=== PATIENT | male | born 1960 | race Caucasian/White ===

== ENCOUNTER → 2016-06-05 | Outpatient (CLI) | payer OTHER ==
[~2016-06-05] VITALS: Ht 180.3 cm; Wt 83.9 kg
[~2016-06-05] MED LIST: ACET-461 PO; BENZ2AMP2 IJ; BUPR100T6 PO; BUTA1TAB46 PO; CATHETER FLUSH 10 ML SYR IV PRN; CHOL500049 PO; D50KC PO; DIAZ-345 PO; ESCI20TA2; ESCT10T; HYDR-707 PO; HYDR1TAB PO; IBP800T PO; LEVO50TA6 PO; LITH300C PO; LITH600C PO; MECL-124 PO; MECL25TA56 PO; MIRT45TA PO; MRTZ30T1 PO; NFPRILOC40 PO; NTR.4SL SL; ONDAN4ODT PO; PANT40TA2 PO; PRAZ2CAP2 PO; PRD10T PO; PRM25T PO; PRV20T PO; RISP1TAB2 PO; RSP1T PO; SCOP1PAT TD; SUCR1TAB36 PO; TRM50T PO; VNL75CCR PO; VNL75T
[2016-06-05 13:23] VITALS: BP 148/61
[2016-06-05 13:27] VITALS: BP 164/52
[2016-06-05 13:30] VITALS: BP 162/54
[2016-06-05 13:34] VITALS: BP 154/53
--- NOTE | 2016-06-06 10:24 | STRESS TEST ---
PROCEDURE PHYSICIAN: THOMAS BEST EXERCISE MYOVIEW STRESS TEST REPORT REFERRING PHYSICIAN: Dr. Nieto DATE OF PROCEDURE: 06/05/2016 INDICATION: Chest pain. Baseline heart rate is 97, baseline blood pressure: 148/61. Baseline EKG: Sinus rhythm with occasional PVCs. SUMMARY: The patient was injected with 10.54 mCi of technetium 99 Myoview and the resting images were obtained. Then the patient started exercising with a baseline heart rate, blood pressure and EKG mentioned above. At minute 2 and 40 seconds, the patient was injected with 32.8 mCi of technetium 99 Myoview. The patient was able to finish a total of 3 minutes 30 seconds on standard Arnold protocol. With peak exercise level, EKG was showing minimal nondiagnostic EKG changes. Blood pressure was 150/47. During recovery, heart rate and blood pressure returned to baseline. EKG returned to baseline. The resting and stress images were reviewed and compared in the short axis, horizontal long axis, and vertical long axis views. Review of the images showed diaphragmatic attenuation with decreased uptake at the mid to apical inferior wall and inferolateral wall, with mild reversibility. SSS is 4, SDS 4, TID value 0.8. On the gated images, the left ventricle appeared to be normal size with mild hypokinesia involving the anterior septum. Calculated ejection fraction 49%. CONCLUSION: 1. Poor exercise tolerance a total of 3 minutes 30 seconds on standard Arnold protocol. Total of 4.6 METs achieving 91% of maximum expected heart rate. 2. Minimal nondiagnostic EKG changes with exercise. Returned to baseline during recovery. 3. Diaphragmatic attenuation with mild ischemia involving the mid to apical inferior wall and inferolateral wall. 4. Normal left ventricular size with mild hypokinesia involving the anterior septum. Calculated ejection fraction 49%. Job ID: [id number] Dictated Date: 06/05/2016 19:32:08 Software Sales Consultant Date: 06/06/2016 10:19:30 / alida
== END ==
LOC: CARD 11:40
PROVIDERS: ATTEND Internal Medicine Cardiovascular Disease
DX: R07.89 Other chest pain (principal)
CPT/HCPCS: 78452; 93017

== ENCOUNTER 2016-06-12 07:03 | Day surgery (SDC) | payer OTHER ==
[~2016-06-12] VITALS: Ht 180.3 cm; Wt 88.0 kg
[2016-06-12] VITALS (10 sets, daily range): BP systolic 100–148; BP diastolic 59–74
[~2016-06-12 07:03] MED LIST changes: -BENZ2AMP2 IJ; -CATHETER FLUSH 10 ML SYR IV PRN; -CHOL500049 PO; -LEVO50TA6 PO; +LIDOCAINE 1% INJ 20 ML (XYLOCAINE) VIAL ONE; +NS IV 1000 ML 1,000 ML ONE
[2016-06-12] MEDS ORDERED: HEParin (CATH LAB) 2,000 ML IV ONE (07:04)
[2016-06-12] MEDS ORDERED: NS IV 1000 ML 1,000 ML IV SCH ×3 (07:17→08:47)
[2016-06-12 07:43] LABS: MEAN PLATELET VOLUME 9.5 FL (7.4-10.4); RED BLOOD COUNT 4.33 10^6/uL (4.35-5.85); WHITE BLOOD COUNT 4.8 10^3/uL (4.3-11.0)
[2016-06-12 07:45] LABS: BILIRUBIN,URINE NEGATIVE (NEGATIVE); KETONES,URINE NEGATIVE (NEGATIVE); LEUKOCYTE ESTERASE ,URINE 1+ (NEGATIVE); NITRITE,URINE NEGATIVE (NEGATIVE); PH,URINE 8 (5-9); PROTEIN,URINE NEGATIVE (NEGATIVE); UROBILINOGEN,URINE NORMAL (NORMAL)
[2016-06-12] MEDS ORDERED: LEVO50TA6 PO (07:49)
[2016-06-12] MEDS ORDERED: CHOL500049 PO (07:49)
[2016-06-12] MEDS ORDERED: BENZ2AMP2 IJ (07:49)
[2016-06-12] MEDS ORDERED: MIDAZOLAM 5 MG/5 ML (VERSED) VIAL ONE (07:50)
[2016-06-12] MEDS ORDERED: fentaNYL INJECTION 100 MCG/2 ML AMP ONE (07:50)
[2016-06-12 07:53] LABS: INR 0.9 (0.8-1.4); PROTHROMBIN TIME PATIENT 12.3 SEC (12.2-14.7)
[2016-06-12 08:01] LABS: ALANINE AMINOTRANSFERASE 45 U/L (0-55); ALBUMIN 4.7 G/DL (3.2-4.5); ANION GAP 10 MMOL/L (5-14); ASPARTATE AMINO TRANSFERASE 19 U/L (5-34); BILIRUBIN,TOTAL 0.4 MG/DL (0.1-1.0); BLOOD UREA NITROGEN 11 MG/DL (7-18); BUN/CREATININE RATIO 11; CALCIUM 9.1 MG/DL (8.5-10.1); CARBON DIOXIDE 21 MMOL/L (21-32); CHLORIDE 109 MMOL/L (98-107); CHOLESTEROL 228 MG/DL (< 200); CREATININE SERUM 0.96 MG/DL (0.60-1.30); DIRECT LDL 62 MG/DL (1-129); GFR ESTIMATED > 60; GLUCOSE 129 MG/DL (70-105); POTASSIUM 4.4 MMOL/L (3.6-5.0); SODIUM 140 MMOL/L (135-145); TOTAL PROTEIN 7.2 G/DL (6.4-8.2); TRIGLYCERIDES 360 MG/DL (<150); VLDL CHOLESTEROL 72 MG/DL (5-40)
--- NOTE | 2016-06-12 08:04 | Cardiac Procedure Note-CS/ASA ---
Pre-Procedure Note Pre-Op Procedure Note H&P Reviewed The H&P was reviewed, patient examined and no changes noted. Date H&P Reviewed: Jun 12, 2016 Time H&P Reviewed: 08:04 Conscious Sedation Pre-Proced Time Reviewed: 08:04 ASA Class: 3 Airway Mallampati Classification: ([place] appropriate class) I. II. III, IV Lungs Heart ASA score ASA 1: a normal healthy patient ASA 2: a patient with a mild systemic disease (mid diabetes, controlled hypertension, obesity X ASA 3: a patient with a severe systemic disease that limits activity (angina , COPD, prior Myocardial infarction) ASA 4: a patient with an incapacitating disease that is a constant threat to life (CHF, renal failure) ASA 5: a moribund patient not expected to survive 24 hrs. (ruptured aneurysm) ASA 6: a declared brain patient whose organs are being harvested. For emergent operations, add the letter E after the classification Grade 3 Sedation Plan: Analgesia, Amnesia, Plan communicated to team members, Discussed options with patient/fam, Discussed risks with patient/fam Note The patient is an appropriate candidate to undergo the planned procedure, sedation, and anesthesia. The patient immediately re-assessed prior to indication. THOMAS BEST MD Jun 12, 2016 08:04
--- NOTE | 2016-06-12 08:24 | Diagnostic Imaging Report ---
INDICATION: Cardiac disease with abnormal stress study. COMPARISON: 09/16/2012. FINDINGS: The heart size is within normal limits stable from prior. Hilar mediastinal contour when differing technique taken into account not obviously changed. No edema. No pneumonia. No effusion or pneumothorax. IMPRESSION: No acute appearing abnormality. Dictated by: Dictated on workstation # [id number]
--- NOTE | 2016-06-12 08:50 | Discharge Inst-Post CATH ---
Discharge Inst-CATH Post Cardiac Cath D/C Inst Follow Up/Plan Appointment with Dr Andrade's office in 2-4 weeks CARDIAC CATH DISCHARGE INSTRUCTIONS *Hold Metformin for 48 hours post heart cath. ACTIVITY * Go Home directly and rest. * Limit activity of the leg (or wrist if it was used) for 7 days including aerobics, swimming, jogging, bicycling, etc. * Restrict stair-climbing for 7 days if possible, if not, climb up with your non -cath leg, then bring together on the same step. * Avoid lifting, pushing, pulling or excessive movement of the affected extremity for 7 days. * Customary sexual activity may be resumed after 2 days-use caution not to use a position that strains or causes pain to the affected extremity. * No driving for 24 hours. * NO SMOKING. * Avoid straining for bowel movements for 7 days. * Gentle walking on level ground is allowed. * Returning to work will depend on the type of procedure and the results. Your doctor will discuss this with you. CALL YOUR DOCTOR FOR ANY OF THE FOLLOWING: *If bleeding from the puncture site occurs- Apply gentle pressure to site with clean cloth and call your doctor or EMS. * If a knot or lump forms under the skin, increases in size, or causes pain. * If bruising appears to be worsening or moving further down your leg instead of disappearing. * Temperature above 101 F. CARE OF YOUR GROIN INCISION; * Bruising or purple discoloration of the skin near the puncture site is common. * You may shower only, no bathtub bathing for 5 days. Be careful to avoid slipping as your leg may feel stiff. * If a closure device was used on your femoral artery, please see the attached guide regarding care of the device and your leg. * REMOVE the dressing from your groin the next day after your procedure in the shower. CARE OF YOUR WRIST INCISION; * Bruising or purple discoloration of the skin near the puncture site is common. * You may shower. * DO NOT submerge wrist. * Remove dressing in 24 hours. THOMAS ANDRADE MD Jun 12, 2016 08:50
[2016-06-12] MEDS ORDERED: PATIENT MAY USE OWN MEDS, ALL PO SCH (09:00)
--- NOTE | 2016-06-12 10:17 | DISCHARGE SUMMARY ---
PROCEDURE PHYSICIAN: THOMAS BEST DATE OF PROCEDURE: 06/12/2016 REFERRING PHYSICIAN: Dr. Nieto BRIEF HISTORY: Mr. Harmon is a 56-year-old gentleman with history of chest pain, hypertension and hyperlipidemia. He had an abnormal stress test. He was scheduled for left heart catheterization, possible PTCA. PROCEDURE NOTE: After explaining the procedure to the patient, all pros and cons were explained. All questions were answered. The patient signed a consent, then he was placed on the cardiac catheterization laboratory. The right groin was prepped in a sterile fashion. Local anesthesia applied to the right groin. 6-Bulgarian sheath was placed in the right lower artery. Combination of right and left [place] catheter were used to access the right and left coronary system. Multiple views were obtained. Pigtail catheter advanced to the left ventricular cavity. Pressure was measured, no left ventriculogram was done. Pullback LV to aorta was done. Aortic arch angiogram was done. At the end of the procedure, sheath was removed. Mynx device deployed. Hemostasis achieved. FINDINGS: HEMODYNAMICS: LV pressure 111/10, end-diastolic pressure of 10, aortic pressure 114/56, mean of 81. ANATOMY: 1. Left main coronary artery is bifurcating to left anterior descending and left circumflex artery with no obstructive disease. 2. Left anterior descending artery is moderate in size with mild disease, nonobstructive disease. 3. Left circumflex artery is a large dominant artery with no obstructive disease. 4. Right coronary artery is a small, nondominant artery with no obstructive disease. 5. Aortic arch angiogram appeared to be normal in size. No dissection or aneurysm. Origin of the carotid innominate artery and subclavian artery appeared normal. Some tortuosity in the right innominate artery. No dissection, no aneurysm no obstructive disease. CONCLUSION: 1. Mild coronary artery disease. No significant obstructive disease. Large dominant circumflex system with small, nondominant right coronary system. 2. Normal left ventricular end-diastolic pressure. 3. Normal aortic arch and great neck vessels. DISCUSSION AND RECOMMENDATIONS: Stress test abnormality is probably due to extracardiac attenuation. FINAL DIAGNOSES: 1. Chest pain, nonspecific etiology. 2. Coronary artery disease. 3. Hypertension. 4. Hyperlipidemia. Job ID: [id number] Dictated Date: 06/12/2016 08:54:10 Sanitation Superintendent Date: 06/12/2016 10:15:29/alida
== END 2016-06-12 13:14 | disposition home or self-care (01) ==
LOC: CATH 07:03 → SURG 09:03 → CATH 13:14
PROVIDERS: ATTEND Internal Medicine Cardiovascular Disease
DX: R94.39 Abnormal result of other cardiovascular function study (principal); I25.10 Atherosclerotic heart disease of native coronary artery without angina pectoris; R07.89 Other chest pain; E78.5 Hyperlipidemia, unspecified; I10 Essential (primary) hypertension; F32.9 Major depressive disorder, single episode, unspecified; I49.3 Ventricular premature depolarization; I08.0 Rheumatic disorders of both mitral and aortic valves; Z86.711 Personal history of pulmonary embolism; Z86.718 Personal history of other venous thrombosis and embolism; Z79.899 Other long term (current) drug therapy
CPT/HCPCS: 36221; 36415; 71010; 80053; 80061; 81000; 85027; 85610; 85730; 87081; 93005; 93458

== ENCOUNTER → 2019-03-05 | Outpatient (CLI) | payer SELFPAY ==
[~2019-03-05] MED LIST changes: +BENZ2AMP2 IJ; +CHOL500049 PO; +LEVO50TA6 PO; -LIDOCAINE 1% INJ 20 ML (XYLOCAINE) VIAL ONE; -NS IV 1000 ML 1,000 ML ONE
[2019-03-05 10:01] LABS: ALANINE AMINOTRANSFERASE 31 U/L (0-55); ALBUMIN 4.1 GM/DL (3.2-4.5); ALKALINE PHOSPHATASE 78 U/L (40-136); BILIRUBIN,TOTAL 0.4 MG/DL (0.1-1.0); BUN/CREATININE RATIO 7; CALCIUM 8.7 MG/DL (8.5-10.1); CARBON DIOXIDE 21 MMOL/L (21-32); CHLORIDE 109 MMOL/L (98-107); GFR ESTIMATED > 60; GLUCOSE 118 MG/DL (70-105); POTASSIUM 3.9 MMOL/L (3.6-5.0); SODIUM 141 MMOL/L (135-145); TOTAL PROTEIN 6.6 GM/DL (6.4-8.2)
== END ==
LOC: RAD 09:15
PROVIDERS: ATTEND Family Medicine
DX: G91.9 Hydrocephalus, unspecified (principal)
CPT/HCPCS: 36415; 80053

== ENCOUNTER 2020-10-14 13:51 | Emergency (ER) | payer SELFPAY ==
[~2020-10-14] VITALS: Ht 180.3 cm; Wt 90.9 kg
[2020-10-14] MEDS ORDERED: HYDROcodone/APAP 5 MG/325 MG (LORTAB) TAB PO ONE (14:15)
[2020-10-14 14:25] LABS: BASOPHILS % (AUTO) 1 % (0-10); EOSINOPHILS # (AUTO) 0.1 10^3/uL (0.0-0.3); EOSINOPHILS % (AUTO) 3 % (0-10); HEMATOCRIT 39 % (40-54); HEMOGLOBIN 12.8 g/dL (13.3-17.7); LYMPHOCYTES # (AUTO) 1.1 10^3/uL (1.0-4.0); LYMPHOCYTES % (AUTO) 22 % (12-44); MEAN CORPUSCULAR HEMOGLOBIN 31 pg (25-34); MEAN CORPUSCULAR HGB CONC 33 g/dL (32-36); MEAN CORPUSCULAR VOLUME 95 fL (80-99); MEAN PLATELET VOLUME 9.7 fL (9.0-12.2); MONOCYTES # (AUTO) 0.3 10^3/uL (0.0-1.0); MONOCYTES % (AUTO) 6 % (0-12); NEUTROPHILS # (AUTO) 3.3 10^3/uL (1.8-7.8); NEUTROPHILS % (AUTO) 69 % (42-75); PLATELET COUNT 203 10^3/uL (130-400); WHITE BLOOD COUNT 4.8 10^3/uL (4.3-11.0)
[2020-10-14] MEDS ORDERED: NS IV 1000 ML 1,000 ML IV SCH (14:30)
--- NOTE | 2020-10-14 14:31 | ED Fall/Injury ---
General Chief Complaint: Trauma-Non Activation Stated Complaint: FALL/R SIDE PAIN Nursing Triage Note: AMB TO ED REPORTS THIS AM SLIPPED AND FELL IN BATHROOM HITTING R SIDE C/O PAIN IN BACK NO BRUSING NOTED Source: patient Exam Limitations: no limitations History of Present Illness Date Seen by Provider: October 14, 2020 Time Seen by Provider: 14:15 Initial Comments To ER with right flank pain mostly posterior but little anterior. This began this morning when he slipped in some water on the floor at home and landed on the hard floor. There was nothing on the floor just the flat floor. He did not hit his head. He presents to ER with pain rated 9 out of 10 in the right flank. This occurred this morning at about 9 AM. Occurred: this morning Severity: moderate Injuries/Pain Location: back Context: slipped Loss of Consciousness: no loss of consciousness Associated Symptoms (Fall): Abdominal Pain; No Headache, No Neck Pain Allergies and Home Medications Allergies Coded Allergies: fish derived (Unverified Allergy, Intermediate, FISH OIL = RASH, 03/18/14) Home Medications Acetaminophen 500 Mg Tablet, 500 MG PO Q4H PRN for PAIN, (Reported) Benztropine Mesylate 2 Mg/2 Ml Ampul, 2 MG IJ BID, (Reported) Bupropion HCl 100 Mg Tablet, 100 MG PO DAILY, (Reported) Cholecalciferol (Vitamin D3) 50,000 Unit Capsule, 50,000 UNIT PO DAILY, (Reported) Ergocalciferol 50,000 Units Cap, 50,000 UNITS PO WEEKLY ON FRIDAY, (Reported) Levothyroxine Sodium 50 Mcg Tablet, 50 MCG PO DAILY, (Reported) [place] Carbonate 300 Mg Capsule, 300 MG PO WITH BREAKFAST, (Reported) [place] Carbonate 600 Mg Capsule, 600 MG PO WITH EVENING MEAL, (Reported) Mirtazapine 30 Mg Tab, 30 MG PO HS, (Reported) Mirtazapine 45 Mg Tablet, 45 MG PO HS, (Reported) Pantoprazole Sodium 40 Mg Tablet.dr, 40 MG PO DAILY Prescribed by: TONY REEVES on 08/22/15 1339 Pravastatin Sodium 20 Mg Tablet, 20 MG PO HS, (Reported) Prazosin Hcl 2 Mg Capsule, 2 MG PO HS PRN for NIGHTMARES, (Reported) Risperidone 1 Mg Tablet, 3 MG PO BID, (Reported) TAKES 3 (1MG) TABLETS Sucralfate 1 Gm Tablet, 1 GM PO QID Prescribed by: T[facility]Y [facility] on 08/22/15 1339 Venlafaxine Hcl 75 Mg Cap, 225 MG PO DAILY, (Reported) TAKES 3 (75MG) CAPSULES Patient Home Medication List Home Medication List Reviewed: Yes Review of Systems Review of Systems Constitutional: see HPI Eyes: No Symptoms Reported Ears, Nose, Mouth, Throat: no symptoms reported Respiratory: no symptoms reported Cardiovascular: no symptoms reported Genitourinary: no symptoms reported Musculoskeletal: no symptoms reported Skin: no symptoms reported Psychiatric/Neurological: No Symptoms Reported Past Tyuqlwz-Ocqnaj-Hsinms Hx Patient Social History Alcohol Use: Occasionally Uses Smoking Status: Never a Smoker Recent Infectious Disease Expo: No Recent Hopitalizations: Yes ( PREVIOUSLY STATED) Immunizations Up To Date Tetanus Booster (TDap): Unknown Date of Influenza Vaccine: Apr 24, 2016 Past Medical History Surgeries: Yes (VENA CAVA FILTER) Respiratory: No Pulmonary Embolism Cardiac: No Neurological: No Sexually Transmitted Disease: Yes HIV/AIDS: No (BUT PT STATES HE HAS "HIGH RISK BEHAVIOR FOR HIV"-DOES NOT ELABORATE) Gastrointestinal: No Ulcer Musculoskeletal: No Fractures Endocrine: No Loss of Vision: Denies Hearing Impairment: Denies Cancer: No Psychosocial: No Anxiety, Depression Integumentary: No Blood Disorders: Yes Family Medical History Patient reports no known family medical history. Physical Exam Vital Signs Vital Signs - First Documented 10/14/20 13:53 Temp 35.8 Pulse 112 Resp 18 B/P (MAP) 155/55 (88) Pulse Ox 99 O2 Delivery Room Air Capillary Refill : Less Than 3 Seconds Height, Weight, BMI Height: 5'11.00" Weight: 194lbs. 0.0oz. 87.033834cs; 27.00 BMI Method:Stated General Appearance: WD/WN, no apparent distress HEENT: PERRL/EOMI, normal ENT inspection Neck: non-tender Respiratory: no respiratory distress, no accessory muscle use Gastrointestinal: normal bowel sounds, non tender, soft Extremities: other (The right flank is tender to palpation as is the anterior right side of the abdomen. There is no abrasion or ecchymosis or erythema.) Neurologic/Psychiatric: alert, normal mood/affect, oriented x 3 Skin: normal color, warm/dry [place] Coma Score Best Eye Response: (4) Open Spontaneously Best Verbal Response: (5) Oriented Best Motor Response: (6) Obeys Commands [place] Total: 15 Progress/Results/Core Measures Results/Orders Lab Results Laboratory Tests Test 10/14/20 14:12 10/14/20 15:17 Range/Units White Blood Count 4.8 4.3-11.0 10^3/uL Red Blood Count 4.11 L 4.30-5.52 10^6/uL Hemoglobin 12.8 L 13.3-17.7 g/dL Hematocrit 39 L 40-54 % Mean Corpuscular Volume 95 80-99 fL Mean Corpuscular Hemoglobin 31 25-34 pg Mean Corpuscular Hemoglobin Concent 33 32-36 g/dL Red Cell Distribution Width 12.7 10.0-14.5 % Platelet Count 203 130-400 10^3/uL Mean Platelet Volume 9.7 9.0-12.2 fL Immature Granulocyte % (Auto) 0 % Neutrophils (%) (Auto) 69 42-75 % Lymphocytes (%) (Auto) 22 12-44 % Monocytes (%) (Auto) 6 0-12 % Eosinophils (%) (Auto) 3 0-10 % Basophils (%) (Auto) 1 0-10 % Neutrophils # (Auto) 3.3 1.8-7.8 10^3/uL Lymphocytes # (Auto) 1.1 1.0-4.0 10^3/uL Monocytes # (Auto) 0.3 0.0-1.0 10^3/uL Eosinophils # (Auto) 0.1 0.0-0.3 10^3/uL Basophils # (Auto) 0.0 0.0-0.1 10^3/uL Immature Granulocyte # (Auto) 0.0 0.0-0.1 10^3/uL Sodium Level 138 135-145 MMOL/L Potassium Level 4.2 3.6-5.0 MMOL/L Chloride Level 104 98-107 MMOL/L Carbon Dioxide Level 25 21-32 MMOL/L Anion Gap 9 5-14 MMOL/L Blood Urea Nitrogen 11 7-18 MG/DL Creatinine 0.92 0.60-1.30 MG/DL Estimat Glomerular Filtration Rate > 60 BUN/Creatinine Ratio 12 Glucose Level 118 H 70-105 MG/DL Calcium Level 9.4 8.5-10.1 MG/DL Corrected Calcium 9.1 8.5-10.1 MG/DL Total Bilirubin 0.4 0.1-1.0 MG/DL Aspartate Amino Transf (AST/SGOT) 34 5-34 U/L Alanine Aminotransferase (ALT/SGPT) 48 0-55 U/L Alkaline Phosphatase 82 40-136 U/L Total Protein 6.9 6.4-8.2 GM/DL Albumin 4.4 3.2-4.5 GM/DL Urine Color YELLOW Urine Clarity CLEAR Urine pH 7.5 5-9 Urine Specific [place] 1.010 L 1.016-1.022 Urine Protein NEGATIVE NEGATIVE Urine Glucose (UA) NEGATIVE NEGATIVE Urine Ketones NEGATIVE NEGATIVE Urine Nitrite NEGATIVE NEGATIVE Urine Bilirubin NEGATIVE NEGATIVE Urine Urobilinogen 0.2 < = 1.0 MG/DL Urine Leukocyte Esterase NEGATIVE NEGATIVE Urine RBC (Auto) TRACE-I NEGATIVE Urine RBC RARE /HPF Urine WBC RARE /HPF Urine Crystals NONE /LPF Urine Bacteria TRACE /HPF Urine Casts NONE /LPF Urine Mucus NEGATIVE /LPF Urine Culture Indicated NO My Orders Orders - MARLENA ESPINOSA APRN Hydrocodone/Apap 5/325 Tablet (Lortab 5 (10/14/20 14:15) Cbc With Automated Diff (10/14/20 14:19) Comprehensive Metabolic Panel (10/14/20 14:19) Protime With Inr (10/14/20 14:19) Ed Iv/Invasive Line Start (10/14/20 14:19) Ct Abdomen/Pelvis W (10/14/20 14:19) Chest 1 View, Ap/Pa Only (10/14/20 14:19) Ua Culture If Indicated (10/14/20 14:19) Ns Iv 1000 Ml (Sodium Chloride 0.9%) (10/14/20 14:30) Iohexol Injection (Omnipaque 350 Mg/Ml 1 (10/14/20 15:00) Received Contrast (Hold Metformin- Contr (10/14/20 15:00) Ns (Ivpb) (Sodium Chloride 0.9% Ivpb Bag (10/14/20 15:00) Medications Given in ED Current Medications Medications Dose Ordered Sig/Jigna Route Start Time Stop Time Status Last Admin Dose Admin Acetaminophen/ Hydrocodone Bitart 1 ea ONCE ONCE PO 10/14/20 14:15 10/14/20 14:16 DC 10/14/20 14:35 1 EA Iohexol 100 ml ONCE ONCE IV 10/14/20 15:00 10/14/20 15:01 DC 10/14/20 14:51 100 ML Sodium Chloride 100 ml ONCE ONCE IV 10/14/20 15:00 10/14/20 15:01 DC 10/14/20 14:51 80 ML Vital Signs/I&O 10/14/20 13:53 Temp 35.8 Pulse 112 Resp 18 B/P (MAP) 155/55 (88) Pulse Ox 99 O2 Delivery Room Air Blood Pressure Mean: 88 Diagnostic Imaging Diagonstic Imaging: CT Comments NAME: [facility]FF[facility] REC#: [id number] PT STATUS: REG ER : 1960 PHYSICIAN: MARLENA ESPINOSA APRN ADMIT DATE: 10/14/20/ER Draft Date of Exam:10/14/20 CT ABDOMEN/PELVIS W INDICATION: Dark urine after a fall. Pain. EXAMINATION: Post IV contrast-enhanced CT abdomen and pelvis performed with multiplanar reconstructions. All CT scans use one or more of the following dose optimizing techniques: automated exposure control, MA and/or KvP adjustment based on patient size and exam type or iterative reconstruction. FINDINGS: There were no findings of renal contusion or renal laceration. Renal collecting systems intact and unobstructed. There is opacification of the ureters, bilaterally, throughout their course on the delayed images. The urinary bladder, itself, appears unremarkable. There is no contrast extravasation. The adrenals are negative. The lung bases nonacute. The visualized lower ribs segments intact. There is an IVC filter present below the renal veins. No evidence for arterial or venous thrombus or obstruction. There is a mild hepatic steatosis. The liver is nonfocal and nonacute. No evidence for hepatic laceration. No biliary abnormality. The spleen appears normal. The pancreas unremarkable. The aorta is nonaneurysmal and patent. The air-containing appendix is visualized and normal. Prostate and seminal vesicles are unremarkable. The bony structures of the pelvis are nonacute. Construction views reveal the unremarkable appearance of the lower thoracic and lumbar spine. IMPRESSION: 1. No acute or posttraumatic sequelae identified. In particular, the kidneys appear well-perfused, unobstructed and normal. 2. Mild hepatic steatosis. IVC filter indwelling without venous thrombus. No acute appearing abnormality. Dictated on workstation # [id number] Dict: 10/14/20 1454 Trans: 10/14/20 1523 [facility] [id number] Interpreted by: GLADYS JACOBO Electronically signed by: Departure Impression Primary Impression: Right flank pain Disposition: 01 HOME, SELF-CARE Condition: Stable Departure-Patient Inst. Decision time for Depature: 15:22 Referrals: CARA MALDONADO MD (PCP/Family) Primary Care Physician Patient Instructions: Flank Pain (DC) Scripts Hydrocodone/Acetaminophen (Hydrocodone-Acetamin 5-325 mg) 1 Each Tablet 1 TAB PO Q4H PRN for PAIN-MODERATE (5-7), #10 TAB Prov: MARLENA ESPINOSA APRN 10/14/20 MARLENA ESPINOSA APRN October 14, 2020 14:30
[2020-10-14 14:34] LABS: ALBUMIN 4.4 GM/DL (3.2-4.5)
[2020-10-14 14:35] LABS: CHLORIDE 104 MMOL/L (98-107); POTASSIUM 4.2 MMOL/L (3.6-5.0); SODIUM 138 MMOL/L (135-145)
[2020-10-14 14:36] LABS: CALCIUM 9.4 MG/DL (8.5-10.1)
[2020-10-14 14:37] LABS: GLUCOSE 118 MG/DL (70-105); TOTAL PROTEIN 6.9 GM/DL (6.4-8.2)
[2020-10-14 14:38] LABS: CARBON DIOXIDE 25 MMOL/L (21-32)
[2020-10-14 14:39] LABS: BILIRUBIN,TOTAL 0.4 MG/DL (0.1-1.0)
[2020-10-14 14:40] LABS: ALKALINE PHOSPHATASE 82 U/L (40-136)
[2020-10-14 14:41] LABS: CREATININE SERUM 0.92 MG/DL (0.60-1.30); GFR ESTIMATED > 60
[2020-10-14 14:42] LABS: BUN/CREATININE RATIO 12
[2020-10-14 14:43] LABS: ALANINE AMINOTRANSFERASE 48 U/L (0-55)
--- NOTE | 2020-10-14 14:55 | Diagnostic Imaging Report ---
INDICATION: Fall and right flank pain. TIME OF EXAM: 2:42 PM Correlation is made with prior chest from 06/12/2016. FINDINGS: Heart size stable. Lungs are clear. No infiltrates are seen. There is no effusion or pneumothorax. Bony structures appear intact. IMPRESSION: No acute bony abnormality is detected. Dictated by: Dictated on workstation # [id number]
[2020-10-14] MEDS ORDERED: IOHEXOL 350 MG/ML 100 ML (OMNIPAQUE 350) VIAL IV ONE (15:00)
[2020-10-14] MEDS ORDERED: HOLD METFORMIN - RECEIVED CONTRAST 20 ML VIAL IV SCH (15:00)
[2020-10-14] MEDS ORDERED: NS 100 ML (IVPB) BAG IV ONE (15:00)
[2020-10-14 15:23] LABS: BILIRUBIN,URINE NEGATIVE (NEGATIVE); CLARITY,URINE CLEAR; COLOR,URINE YELLOW; GLUCOSE, URINE (UA) NEGATIVE (NEGATIVE); KETONES,URINE NEGATIVE (NEGATIVE); LEUKOCYTE ESTERASE ,URINE NEGATIVE (NEGATIVE); NITRITE,URINE NEGATIVE (NEGATIVE); PH,URINE 7.5 (5-9); PROTEIN,URINE NEGATIVE (NEGATIVE)
--- NOTE | 2020-10-14 15:24 | Diagnostic Imaging Report ---
INDICATION: Dark urine after a fall. Pain. EXAMINATION: Post IV contrast-enhanced CT abdomen and pelvis performed with multiplanar reconstructions. All CT scans use one or more of the following dose optimizing techniques: automated exposure control, MA and/or KvP adjustment based on patient size and exam type or iterative reconstruction. FINDINGS: There were no findings of renal contusion or renal laceration. Renal collecting systems intact and unobstructed. There is opacification of the ureters, bilaterally, throughout their course on the delayed images. The urinary bladder, itself, appears unremarkable. There is no contrast extravasation. The adrenals are negative. The lung bases nonacute. The visualized lower ribs segments intact. There is an IVC filter present below the renal veins. No evidence for arterial or venous thrombus or obstruction. There is a mild hepatic steatosis. The liver is nonfocal and nonacute. No evidence for hepatic laceration. No biliary abnormality. The spleen appears normal. The pancreas unremarkable. The aorta is nonaneurysmal and patent. The air-containing appendix is visualized and normal. Prostate and seminal vesicles are unremarkable. The bony structures of the pelvis are nonacute. Construction views reveal the unremarkable appearance of the lower thoracic and lumbar spine. IMPRESSION: 1. No acute or posttraumatic sequelae identified. In particular, the kidneys appear well-perfused, unobstructed and normal. 2. Mild hepatic steatosis. IVC filter indwelling without venous thrombus. No acute appearing abnormality. Dictated by: Dictated on workstation # [id number]
[2020-10-14 15:30] LABS: BACTERIA,URINE TRACE /HPF; RBC,URINE RARE /HPF; WBC,URINE RARE /HPF
[2020-10-14] MEDS ORDERED: ACHD5005 PO (15:36)
[2020-10-14 15:52] VITALS: BP 155/55
== END 2020-10-14 15:59 | disposition home or self-care (01) ==
LOC: EDUNIT# 13:51 → ER 13:53
DX: R10.9 Unspecified abdominal pain (principal); F32.9 Major depressive disorder, single episode, unspecified; F41.9 Anxiety disorder, unspecified; Z79.899 Other long term (current) drug therapy
CPT/HCPCS: 36415; 71045; 74177; 80053; 81000; 85025

== ENCOUNTER 2022-02-06 12:35 | Emergency (ER) | payer SELFPAY ==
[~2022-02-06] VITALS: Ht 180.3 cm; Wt 81.6 kg
[~2022-02-06 12:35] MED LIST changes: +ACHD5005 PO
[2022-02-06] MEDS ORDERED: morphine INJ 10 MG/ML 1ML (SYR OR VIAL) IVP STA (12:56)
[2022-02-06] MEDS ORDERED: ASPIRIN 81 MG CHEW (CHILDREN'S ASA) PO ONE (13:00)
--- NOTE | 2022-02-06 13:00 | ED Chest Pain ---
General Stated Complaint: CHEST PAIN Source: patient Exam Limitations: no limitations History of Present Illness Date Seen by Provider: Feb 06, 2022 Time Seen by Provider: 12:57 Initial Comments This is a well appearing 61 you male who pres Allergies and Home Medications Allergies Coded Allergies: fish derived (Unverified Allergy, Intermediate, FISH OIL = RASH, 03/18/14) Patient Home Medication List Acetaminophen (Pain Relief Extra Strength) 500 Mg Tablet, 500 MG PO Q4H PRN for PAIN, (Reported) Entered as Reported by: KENNETH NICHOLSON on 03/21/14 0931 Benztropine Mesylate (Cogentin) 2 Mg/2 Ml Ampul, 2 MG IJ BID, (Reported) Entered as Reported by: MANJINDER HENDERSON on 06/12/16 0749 Bupropion HCl (Wellbutrin) 100 Mg Tablet, 100 MG PO DAILY, (Reported) Entered as Reported by: FREDDIE MORENO on 08/17/15 1615 Cholecalciferol (Vitamin D3) (Vitamin D) 50,000 Unit Capsule, 50,000 UNIT PO DAILY, (Reported) Entered as Reported by: MANJINDER HENDERSON on 06/12/16 0749 Ergocalciferol (Vitamin D2 Capsule) 50,000 Units Cap, 50,000 UNITS PO WEEKLY ON FRIDAY, (Reported) Entered as Reported by: KENNETH NICHOLSON on 03/21/14 0931 Hydrocodone/Acetaminophen (Hydrocodone-Acetamin 5-325 mg) 1 Each Tablet, 1 TAB PO Q4H PRN for PAIN-MODERATE (5-7) Prescribed by: MRALENA ESPINOSA on 10/14/20 1536 Levothyroxine Sodium (Levothyroxine Sodium) 50 Mcg Tablet, 50 MCG PO DAILY, (Reported) Entered as Reported by: MANJINDER HENDERSON on 06/12/16 0749 [place] Carbonate ([place] Carbonate 300 Mg Cap) 300 Mg Capsule, 300 MG PO WITH BREAKFAST, (Reported) Entered as Reported by: KENNETH NICHOLSON on 03/21/1431 [place] Carbonate ([place] Carbonate) 600 Mg Capsule, 600 MG PO WITH EVENING MEAL, (Reported) Entered as Reported by: KENNETH NICHOLSON on 03/21/14 0931 Mirtazapine (Mirtazapine 30 Mg Solutab) 30 Mg Tab, 30 MG PO HS, (Reported) Entered as Reported by: BECKA BILLINGS on 03/11/14 1430 Mirtazapine (Remeron) 45 Mg Tablet, 45 MG PO HS, (Reported) Entered as Reported by: FREDDIE MORENO on 08/17/15 1615 Pantoprazole Sodium (Protonix) 40 Mg Tablet.dr, 40 MG PO DAILY Prescribed by: TONY REEVES on 08/22/15 1339 Pravastatin Sodium (Pravachol) 20 Mg Tablet, 20 MG PO HS, (Reported) Entered as Reported by: KENNETH NICHOLSON on 03/21/14 0931 Prazosin Hcl (Prazosin Hcl) 2 Mg Capsule, 2 MG PO HS PRN for NIGHTMARES, (Reported) Entered as Reported by: KENNETH NICHOLSON on 03/21/14 0931 Risperidone (Risperidone) 1 Mg Tablet, 3 MG PO BID, (Reported) Entered as Reported by: KENNETH NICHOLSON on 03/21/14 0931 Sucralfate (Carafate) 1 Gm Tablet, 1 GM PO QID Prescribed by: TONY REEVES on 08/22/15 1339 Venlafaxine Hcl (Effexor Xr) 75 Mg Cap, 225 MG PO DAILY, (Reported) Entered as Reported by: BECKA BILLINGS on 03/11/14 1430 Past Zocukvp-Lgbyer-Jkbalx Hx Immunizations Up To Date Tetanus Booster (TDap): Unknown Past Medical History Surgeries: Yes (VENA CAVA FILTER) Respiratory: No Pulmonary Embolism Cardiac: No Neurological: No Sexually Transmitted Disease: Yes HIV/AIDS: No (BUT PT STATES HE HAS "HIGH RISK BEHAVIOR FOR HIV"-DOES NOT ELABORATE) Gastrointestinal: No Ulcer Musculoskeletal: No Fractures Endocrine: No Loss of Vision: Denies Hearing Impairment: Denies Cancer: No Psychosocial: No Anxiety, Depression Integumentary: No Blood Disorders: Yes Family Medical History Patient reports no known family medical history. Physical Exam Vital Signs Capillary Refill : Height, Weight, BMI Height: 5'11.00" Weight: 194lbs. 0.0oz. 87.770049sa; 27.00 BMI Method:Stated Progress/Results/Core Measures Results/Orders Lab Results Laboratory Tests Test 02/06/22 12:55 02/06/22 14:10 Range/Units White Blood Count 4.9 4.3-11.0 10^3/uL Red Blood Count 4.27 L 4.30-5.52 10^6/uL Hemoglobin 13.0 L 13.3-17.7 g/dL Hematocrit 38 L 40-54 % Mean Corpuscular Volume 89 80-99 fL Mean Corpuscular Hemoglobin 30 25-34 pg Mean Corpuscular Hemoglobin Concent 34 32-36 g/dL Red Cell Distribution Width 13.9 10.0-14.5 % Platelet Count 222 130-400 10^3/uL Mean Platelet Volume 9.5 9.0-12.2 fL Immature Granulocyte % (Auto) 0 % Neutrophils (%) (Auto) 60 42-75 % Lymphocytes (%) (Auto) 27 12-44 % Monocytes (%) (Auto) 9 0-12 % Eosinophils (%) (Auto) 2 0-10 % Basophils (%) (Auto) 1 0-10 % Neutrophils # (Auto) 3.0 1.8-7.8 10^3/uL Lymphocytes # (Auto) 1.4 1.0-4.0 10^3/uL Monocytes # (Auto) 0.5 0.0-1.0 10^3/uL Eosinophils # (Auto) 0.1 0.0-0.3 10^3/uL Basophils # (Auto) 0.0 0.0-0.1 10^3/uL Immature Granulocyte # (Auto) 0.0 0.0-0.1 10^3/uL Prothrombin Time 13.6 12.2-14.7 SEC INR Comment 1.0 0.8-1.4 Activated Partial Thromboplast Time 28 24-35 SEC D-Dimer < 0.27 0.00-0.49 UG/ML Sodium Level 145 135-145 MMOL/L Potassium Level 3.5 L 3.6-5.0 MMOL/L Chloride Level 110 H 98-107 MMOL/L Carbon Dioxide Level 24 21-32 MMOL/L Anion Gap 11 5-14 MMOL/L Blood Urea Nitrogen 9 7-18 MG/DL Creatinine 0.86 0.60-1.30 MG/DL Estimat Glomerular Filtration Rate 98 BUN/Creatinine Ratio 10 Glucose Level 127 H 70-105 MG/DL Calcium Level 9.5 8.5-10.1 MG/DL Corrected Calcium 9.3 8.5-10.1 MG/DL Magnesium Level 2.0 1.6-2.4 MG/DL Total Bilirubin 0.5 0.1-1.0 MG/DL Aspartate Amino Transf (AST/SGOT) 34 5-34 U/L Alanine Aminotransferase (ALT/SGPT) 52 0-55 U/L Alkaline Phosphatase 90 40-136 U/L Total Creatine Kinase 100 30-200 U/L Creatine Kinase MB 1.9 <6.6 NG/ML Myoglobin 57.8 10.0-92.0 NG/ML Troponin I < 0.028 <0.028 NG/ML B-Type Natriuretic Peptide 45.3 <100.0 PG/ML Total Protein 6.8 6.4-8.2 GM/DL Albumin 4.3 3.2-4.5 GM/DL Influenza Type A (RT-PCR) Not Detected Not Detecte Influenza Type B (RT-PCR) Not Detected Not Detecte SARS-CoV-2 RNA (RT-PCR) Not Detected Not Detecte My Orders Orders - IVET OBANDO APRN Ekg Tracing (02/06/22 12:38) Cbc With Automated Diff (02/06/22 12:56) Magnesium (02/06/22 12:56) Chest 1 View, Ap/Pa Only (02/06/22 12:56) Comprehensive Metabolic Panel (02/06/22 12:56) Myoglobin Serum (02/06/22 12:56) Protime With Inr (02/06/22 12:56) Partial Thromboplastin Time (02/06/22 12:56) O2 (02/06/22 12:56) Monitor-Rhythm Ecg Trace Only (02/06/22 12:56) Ed Iv/Invasive Line Start (02/06/22 12:56) Creatine Kinase (02/06/22 12:56) Creatine Kinase Mb (02/06/22 12:56) Bnp [place] (02/06/22 12:56) Fibrin Degradation Products (02/06/22 12:56) Troponin I [place] (02/06/22 12:56) Aspirin Chewable Tablet (Baby Aspirin Ch (02/06/22 13:00) Morphine Injection (Morphine Injection (02/06/22 12:56) Covid 19 Inhouse Test (02/06/22 13:48) Influenza A And B By Pcr (02/06/22 13:48) Medications Given in ED Current Medications Medications Dose Ordered Sig/Jigna Route Start Time Stop Time Status Last Admin Dose Admin Aspirin 324 mg ONCE ONCE PO 02/06/22 13:00 02/06/22 13:01 DC 02/06/22 13:18 324 MG Departure Impression Primary Impression: Chest pain Disposition: 01 HOME, SELF-CARE Condition: Improved Departure-Patient Inst. Decision time for Depature: 14:46 Referrals: [facility] (PCP/Family) Primary Care Physician Patient Instructions: Chest Pain Add. Discharge Instructions: Plan: 1. Follow up with your doctor for any persistent symptoms. 2. Return to ER if you develop and new, concerning, or worsening symptoms. IVET OBANDO [employer] Feb 06, 2022 13:00
[2022-02-06 13:04] LABS: BASOPHILS % (AUTO) 1 % (0-10); EOSINOPHILS # (AUTO) 0.1 10^3/uL (0.0-0.3); EOSINOPHILS % (AUTO) 2 % (0-10); HEMATOCRIT 38 % (40-54); LYMPHOCYTES # (AUTO) 1.4 10^3/uL (1.0-4.0); LYMPHOCYTES % (AUTO) 27 % (12-44); MEAN CORPUSCULAR HEMOGLOBIN 30 pg (25-34); MEAN CORPUSCULAR HGB CONC 34 g/dL (32-36); MEAN CORPUSCULAR VOLUME 89 fL (80-99); MEAN PLATELET VOLUME 9.5 fL (9.0-12.2); MONOCYTES # (AUTO) 0.5 10^3/uL (0.0-1.0); MONOCYTES % (AUTO) 9 % (0-12); NEUTROPHILS % (AUTO) 60 % (42-75); PLATELET COUNT 222 10^3/uL (130-400); WHITE BLOOD COUNT 4.9 10^3/uL (4.3-11.0)
[2022-02-06 13:11] LABS: ALBUMIN 4.3 GM/DL (3.2-4.5); POTASSIUM 3.5 MMOL/L (3.6-5.0)
[2022-02-06 13:12] LABS: CALCIUM 9.5 MG/DL (8.5-10.1)
[2022-02-06 13:14] LABS: PROTHROMBIN TIME PATIENT 13.6 SEC (12.2-14.7); TOTAL PROTEIN 6.8 GM/DL (6.4-8.2)
[2022-02-06 13:15] LABS: BILIRUBIN,TOTAL 0.5 MG/DL (0.1-1.0)
[2022-02-06 13:17] LABS: CREATININE SERUM 0.86 MG/DL (0.60-1.30)
[2022-02-06 13:28] LABS: CREATINE KINASE MB 1.9 NG/ML (<6.6)
--- NOTE | 2022-02-06 13:32 | Diagnostic Imaging Report ---
INDICATION: Chest pain AP view of the chest is obtained with comparison made to study of 10/14/2020. FINDINGS: Heart size and pulmonary vascularity are within normal limits, and the lungs are clear, bilaterally. IMPRESSION: Unremarkable chest. Dictated by: Dictated on workstation # [id number]
[2022-02-06 15:07] VITALS: BP 149/83
== END 2022-02-06 15:07 | disposition home or self-care (01) ==
LOC: EDUNIT# 12:35 → ER 12:36
DX: R07.9 Chest pain, unspecified (principal); Z20.822 Contact with and (suspected) exposure to COVID-19
CPT/HCPCS: 36415; 71045; 80053; 82550; 82553; 83735; 83874; 83880; 84484; 85025; 85379; 85610; 85730; 87636; 93005; 93041

== ENCOUNTER 2023-02-18 14:34 | Emergency (ER) | payer MEDICAID ==
[~2023-02-18] VITALS: Ht 180 cm; Wt 92.0 kg
[2023-02-18 14:55] LABS: BASOPHILS % (AUTO) 1 % (0-10); EOSINOPHILS # (AUTO) 0.1 10^3/uL (0.0-0.3); EOSINOPHILS % (AUTO) 3 % (0-10); HEMATOCRIT 41 % (40-54); HEMOGLOBIN 13.5 g/dL (13.3-17.7); LYMPHOCYTES # (AUTO) 1.5 10^3/uL (1.0-4.0); LYMPHOCYTES % (AUTO) 33 % (12-44); MEAN CORPUSCULAR HEMOGLOBIN 30 pg (25-34); MEAN CORPUSCULAR HGB CONC 33 g/dL (32-36); MEAN CORPUSCULAR VOLUME 92 fL (80-99); MEAN PLATELET VOLUME 9.6 fL (9.0-12.2); MONOCYTES # (AUTO) 0.4 10^3/uL (0.0-1.0); MONOCYTES % (AUTO) 9 % (0-12); NEUTROPHILS # (AUTO) 2.6 10^3/uL (1.8-7.8); NEUTROPHILS % (AUTO) 55 % (42-75); PLATELET COUNT 191 10^3/uL (130-400); WHITE BLOOD COUNT 4.7 10^3/uL (4.3-11.0)
[2023-02-18 15:05] LABS: ALBUMIN 4.4 GM/DL (3.2-4.5)
[2023-02-18 15:06] LABS: CHLORIDE 110 MMOL/L (98-107); SODIUM 141 MMOL/L (135-145)
[2023-02-18 15:07] LABS: CALCIUM 9.1 MG/DL (8.5-10.1)
[2023-02-18 15:08] LABS: GLUCOSE 119 MG/DL (70-105); PROTHROMBIN TIME PATIENT 13.8 SEC (12.2-14.7); TOTAL PROTEIN 7.1 GM/DL (6.4-8.2)
[2023-02-18 15:09] LABS: CARBON DIOXIDE 21 MMOL/L (21-32)
[2023-02-18 15:10] LABS: BILIRUBIN,TOTAL 0.8 MG/DL (0.1-1.0)
--- NOTE | 2023-02-18 15:10 | ED Chest Pain ---
General Chief Complaint: Chest Pain Stated Complaint: CHEST PAINS | NUMBNESS IN ARMS Nursing Triage Note: PT STATES CHEST PAIN SINCE FRIDAY IN THE CENTER OF HIS CHEST, SOME SOA Source: patient, old records Exam Limitations: no limitations History of Present Illness Date Seen by Provider: Feb 18, 2023 Time Seen by Provider: 14:45 Initial Comments This 62-year-old gentleman presents to the emergency room with concerns about central chest discomfort with some mild shortness of air since February 14. His shortness of air is present with exertion. The chest discomfort is described as a heaviness. He reports the discomfort was rather severe on Friday. It improves with rest. He rates the pain as 7/10. He has had some lightheadedness and some cough. He denies any known cardiac history. He has history of DVTs and placement of IVC filter. He is not anticoagulated. Acquisition of his history was somewhat challenging as he has memory difficulties. His primary care provider is Randee Rojas at the [facility] clinic. His preferred pharmacy is [facility]. Review of his chart reveals a cardiac catheterization in 2016 revealing mild coronary artery disease with no obstructive disease. Patient was also seen in the emergency room on February 06 for chest pain and had a negative work-up. Allergies and Home Medications Allergies Coded Allergies: fish derived (Unverified Allergy, Intermediate, FISH OIL = RASH, 03/18/14) Patient Home Medication List Home Medication List Reviewed: Yes Acetaminophen (Pain Relief Extra Strength) 500 Mg Tablet, 500 MG PO Q4H PRN for PAIN, (Reported) Entered as Reported by: KENNETH NICHOLSON on 03/21/14 0931 Benztropine Mesylate (Cogentin) 2 Mg/2 Ml Ampul, 2 MG IJ BID, (Reported) Entered as Reported by: MANJINDER HENDERSON on 06/12/16 0749 Bupropion HCl (Wellbutrin) 100 Mg Tablet, 100 MG PO DAILY, (Reported) Entered as Reported by: FREDDIE MORENO on 08/17/15 1615 Cholecalciferol (Vitamin D3) (Vitamin D) 50,000 Unit Capsule, 50,000 UNIT PO DAILY, (Reported) Entered as Reported by: MANJINDER HENDERSON on 06/12/16 0749 Ergocalciferol (Vitamin D2 Capsule) 50,000 Units Cap, 50,000 UNITS PO WEEKLY ON FRIDAY, (Reported) Entered as Reported by: KENNETH NICHOLSON on 03/21/14930 Hydrocodone/Acetaminophen (Hydrocodone-Acetamin 5-325 mg) 1 Each Tablet, 1 TAB PO Q4H PRN for PAIN-MODERATE (5-7) Prescribed by: MARLENA ESPINOSA on 10/14/20 1536 Levothyroxine Sodium (Levothyroxine Sodium) 50 Mcg Tablet, 50 MCG PO DAILY, (Reported) Entered as Reported by: MANJINDER HENDERSON on 06/12/16 0749 [place] Carbonate ([place] Carbonate 300 Mg Cap) 300 Mg Capsule, 300 MG PO WITH BREAKFAST, (Reported) Entered as Reported by: KENNETH NICHOLSON on 03/21/14930 [place] Carbonate ([place] Carbonate) 600 Mg Capsule, 600 MG PO WITH EVENING MEAL, (Reported) Entered as Reported by: KENNETH NICHOLSON on 03/21/14930 Mirtazapine (Mirtazapine 30 Mg Solutab) 30 Mg Tab, 30 MG PO HS, (Reported) Entered as Reported by: BECKA BILLINGS on 03/11/14 1430 Mirtazapine (Remeron) 45 Mg Tablet, 45 MG PO HS, (Reported) Entered as Reported by: FREDDIE MORENO on 08/17/15 1615 Pantoprazole Sodium (Protonix) 40 Mg Tablet.dr, 40 MG PO DAILY Prescribed by: TONY REEVES on 08/22/15 1339 Pantoprazole Sodium (Protonix) 40 Mg Tablet.dr, 40 MG PO DAILY Prescribed by: MARILYN RECINOS on 02/18/23 1744 Pravastatin Sodium (Pravachol) 20 Mg Tablet, 20 MG PO HS, (Reported) Entered as Reported by: KENNETH NICHOLSON on 03/21/14930 Prazosin Hcl (Prazosin Hcl) 2 Mg Capsule, 2 MG PO HS PRN for NIGHTMARES, (Reported) Entered as Reported by: KENNETH NICHOLSON on 03/21/14930 Risperidone (Risperidone) 1 Mg Tablet, 3 MG PO BID, (Reported) Entered as Reported by: KENNETH NICHOLSON on 03/21/14930 Sucralfate (Carafate) 1 Gm Tablet, 1 GM PO QID Prescribed by: TONY REEVES on 08/22/15 1339 Venlafaxine Hcl (Effexor Xr) 75 Mg Cap, 225 MG PO DAILY, (Reported) Entered as Reported by: BECKA BILLINGS on 03/11/14 1430 Review of Systems Review of Systems Constitutional: no symptoms reported EENTM: No Symptoms Reported Respiratory: See HPI Cardiovascular: See HPI Gastrointestinal: No Symptoms Reported Genitourinary: No Symptoms Reported Musculoskeletal: no symptoms reported Skin: no symptoms reported Psychiatric/Neurological: No Symptoms Reported Endocrine: No Symptoms Reported Hematologic/Lymphatic: No Symptoms Reported Past Beeqoed-Efyxno-Rusvoo Hx Patient Social History Tobacco Use?: No Substance use?: No Alcohol Use?: No Immunizations Up To Date Tetanus Booster (TDap): Unknown First/Initial COVID19 Vaccinat: 2020 Second COVID19 Vaccination [place]: 2020 Third COVID19 Vaccination Date: N/A Past Medical History Surgery/Hospitalization HX: PE, DEPRESSION Surgeries: Yes (VENA CAVA FILTER) Cardiac (cath in 2017 with not interventions) Respiratory: Yes Pulmonary Embolism Cardiac: Yes Deep Vein Thrombosis Neurological: No Sexually Transmitted Disease: Yes HIV/AIDS: No (BUT PT STATES HE HAS "HIGH RISK BEHAVIOR FOR HIV"-DOES NOT ELABORATE) Gastrointestinal: No Ulcer Musculoskeletal: No Fractures Endocrine: No HEENT: No Loss of Vision: Denies Hearing Impairment: Denies Cancer: No Psychosocial: Yes Anxiety, Depression Integumentary: No Blood Disorders: Yes Family Medical History Patient reports no known family medical history. Physical Exam Vital Signs Vital Signs - First Documented 02/18/23 14:38 Temp 36.4 Pulse 86 Resp 18 B/P (MAP) 146/63 (90) Pulse Ox 95 Capillary Refill : Height, Weight, BMI Height: 5'11.00" Weight: 194lbs. 0.0oz. 87.585311hs; 28.00 BMI Method:Stated General Appearance: No Apparent Distress, WD/WN HEENT: PERRL/EOMI, Normal ENT Inspection Neck: Normal Inspection; No JVD Respiratory: Chest Non Tender, Lungs Clear, Normal Breath Sounds, No Accessory Muscle Use Cardiovascular: Regular Rate, Rhythm, No Edema, No Murmur Gastrointestinal: Normal Bowel Sounds, Non Tender, Soft; No Distended Extremity: Normal Inspection, Non Tender, No Pedal Edema Neurologic/Psychiatric: Alert, Oriented x3, No Motor/Sensory Deficits, Normal Mood/Affect, package sealer II-XII Norm as Tested, Other (some mild memory difficulty) Skin: Normal Color, Warm/Dry Progress/Results/Core Measures Results/Orders Lab Results Laboratory Tests Test 02/18/23 14:43 02/18/23 15:19 Range/Units White Blood Count 4.7 4.3-11.0 10^3/uL Red Blood Count 4.46 4.30-5.52 10^6/uL Hemoglobin 13.5 13.3-17.7 g/dL Hematocrit 41 40-54 % Mean Corpuscular Volume 92 80-99 fL Mean Corpuscular Hemoglobin 30 25-34 pg Mean Corpuscular Hemoglobin Concent 33 32-36 g/dL Red Cell Distribution Width 14.0 10.0-14.5 % Platelet Count 191 130-400 10^3/uL Mean Platelet Volume 9.6 9.0-12.2 fL Immature Granulocyte % (Auto) 0 % Neutrophils (%) (Auto) 55 42-75 % Lymphocytes (%) (Auto) 33 12-44 % Monocytes (%) (Auto) 9 0-12 % Eosinophils (%) (Auto) 3 0-10 % Basophils (%) (Auto) 1 0-10 % Neutrophils # (Auto) 2.6 1.8-7.8 10^3/uL Lymphocytes # (Auto) 1.5 1.0-4.0 10^3/uL Monocytes # (Auto) 0.4 0.0-1.0 10^3/uL Eosinophils # (Auto) 0.1 0.0-0.3 10^3/uL Basophils # (Auto) 0.0 0.0-0.1 10^3/uL Immature Granulocyte # (Auto) 0.0 0.0-0.1 10^3/uL Prothrombin Time 13.8 12.2-14.7 SEC INR Comment 1.0 0.8-1.4 Activated Partial Thromboplast Time 28 24-35 SEC D-Dimer < 0.27 0.00-0.49 UG/ML Sodium Level 141 135-145 MMOL/L Potassium Level 4.0 3.6-5.0 MMOL/L Chloride Level 110 H 98-107 MMOL/L Carbon Dioxide Level 21 21-32 MMOL/L Anion Gap 10 5-14 MMOL/L Blood Urea Nitrogen 14 7-18 MG/DL Creatinine 1.05 0.60-1.30 MG/DL Estimat Glomerular Filtration Rate 80 BUN/Creatinine Ratio 13 Glucose Level 119 H 70-105 MG/DL Calcium Level 9.1 8.5-10.1 MG/DL Corrected Calcium 8.8 8.5-10.1 MG/DL Magnesium Level 2.3 1.6-2.4 MG/DL Total Bilirubin 0.8 0.1-1.0 MG/DL Aspartate Amino Transf (AST/SGOT) 45 H 5-34 U/L Alanine Aminotransferase (ALT/SGPT) 73 H 0-55 U/L Alkaline Phosphatase 94 40-136 U/L Myoglobin 31.2 10.0-92.0 NG/ML Troponin I < 0.028 <0.028 NG/ML C-Reactive Protein High Sensitivity 0.25 0.00-0.50 MG/DL B-Type Natriuretic Peptide 64.1 <100.0 PG/ML Total Protein 7.1 6.4-8.2 GM/DL Albumin 4.4 3.2-4.5 GM/DL Thyroid Stimulating Hormone (TSH) 2.28 0.35-4.94 UIU/ML Free Thyroxine 0.91 0.70-1.48 NG/DL [place] Level 0.7 0.6-1.2 mmol/L Influenza Type A (RT-PCR) Not Detected Not Detecte Influenza Type B (RT-PCR) Not Detected Not Detecte SARS-CoV-2 RNA (RT-PCR) Not Detected Not Detecte My Orders Orders - MARILYN STEPHENSON MD Ekg Tracing (02/18/23 14:37) Cbc With Automated Diff (02/18/23 14:45) Magnesium (02/18/23 14:45) Chest 1 View, Ap/Pa Only (02/18/23 14:45) Comprehensive Metabolic Panel (02/18/23 14:45) Myoglobin Serum (02/18/23 14:45) Protime With Inr (02/18/23 14:45) Partial Thromboplastin Time (02/18/23 14:45) O2 (02/18/23 14:45) Monitor-Rhythm Ecg Trace Only (02/18/23 14:45) Ed Iv/Invasive Line Start (02/18/23 14:45) Troponin I [place] (02/18/23 14:45) Aspirin Chewable Tablet (Aspirin Chewabl (02/18/23 15:15) Nitroglycerin 0.4 Mg Btl 25's (Nitroglyc (02/18/23 15:15) Covid 19 Inhouse Test (02/18/23 15:06) Influenza A And B By Pcr (02/18/23 15:06) Fibrin Degradation Products (02/18/23 15:08) [place] Level (02/18/23 15:08) Thyroid Stimulating Hormone (02/18/23 15:08) Free T4 (Free Thyroxine) (02/18/23 15:08) Bnp [place] (02/18/23 16:00) Hs C Reactive Protein (02/18/23 16:00) Ondansetron Injection (Ondansetron Inj (02/18/23 17:00) Lidocaine 2% Viscous 15 Ml (Xylocaine Vi (02/18/23 17:00) Antacid Suspension (Antacid Suspension (02/18/23 17:00) Medications Given in ED Vital Signs/I&O 02/18/23 02/18/23 14:38 17:50 Temp 36.4 36.4 Pulse 86 80 Resp 18 21 B/P (MAP) 146/63 (90) 120/54 Pulse Ox 95 91 Blood Pressure Mean: 90 Progress Progress Note : Progress Note Chief complaint and triage information was reviewed and orders were placed at 1445. Patient was interviewed and examined at 1500. Chest pain work-up was pursued. EKG was interpreted by me as nonischemic with sinus rhythm as noted below. Labs were obtained, reviewed, and interpreted in their entirety by me. CBC reveals a low hemoglobin. This may be due to blood loss, malnutrition, hemolysis, renal failure, malignancy or inherited disorder. And CMP were clinically unremarkable. Troponin was normal. Magnesium, thyroid studies, BNP, and D-dimer were all within normal limits. Patient has now had 2 negative cardiac work-ups in the emergency room over the past 2 weeks. A trial of treatment with GI cocktail was provided. This gave him significant relief of pain indicating his chest pain is likely from a stomach or esophageal source. Treatment with antiacid therapy and lifestyle modification was recommended. Swab for influenza and COVID-19 was negative. Chest x-ray report was reviewed as noted below. I viewed the chest x-ray myself and did not note any acute or adverse changes when compared with prior on February 06. There is no interval development of increasing infiltrate or consolidation. No pneumothorax was noted. See discharge instructions for further discussion. Given two negative work-ups in the ER, improvement with GI cocktail, and no significant coronary artery disease on cardiac cath in 2017, ACS is an extremely unlikely cause for his chest pain. He was stable for discharge. Initial ECG Impression Date: Feb 18, 2023 Initial ECG Impression Time: 14:39 Initial ECG Rate: 84 Initial ECG Rhythm: Normal Sinus Comment Sinus rhythm with no ST elevation or depression. LVH. No significant abnormal intervals. Nonspecific ST changes are chronic and not significantly changed when compared with EKG from February 06, 2023 and June 12, 2016. Diagnostic Imaging Diagonstic Imaging: Xray Plain Films/CT/US/NM/MRI: chest Comments NAME: [facility] REC#: [id number] PT STATUS: REG ER : 1960 PHYSICIAN: MARILYN STEPHENSON MD ADMIT DATE: 02/18/23/ER Draft Date of Exam:02/18/23 CHEST 1 VIEW, AP/PA ONLY INDICATION: 62-year-old male presents with chest pain in the center of the chest. COMPARISONS: 02/06/2022. FINDINGS: Single view chest shows the cardiac contour to be borderline enlarged. There is some central venous congestion. Some perihilar and left basilar infiltrates are present. Background chronic parenchymal changes are seen. The film is slightly rotated. Soft tissues and bony thorax are senescent. IMPRESSION: 1. Borderline cardiomegaly with mild central venous congestion with some perihilar and left basilar atelectatic infiltrates, but no confluent consolidations. Dictated on workstation # [id number] Dict: 02/18/23 1501 Trans: 02/18/23 1509 [id number] Interpreted by: ELIZ POP MD Departure Impression Primary Impression: Atypical chest pain Disposition: 01 HOME, SELF-CARE Condition: Improved Departure-Patient Inst. Decision time for Depature: 17:40 Referrals: [facility] (PCP/Family) Primary Care Physician Patient Instructions: Acid Reflux and GERD in Adults (DC), Chest Pain That Is Not Caused by the Heart (DC) Add. Discharge Instructions: Your heart and lung work-ups in the emergency room did not reveal a specific cause for your chest pain today or on February 06. However, because your symptoms improved with treatment of acid reflux, it is suspected that your chest pain is actually caused by acid reflux. Please follow-up with your primary care provider soon as possible. In the meantime, start Protonix entheses antacid) as prescribed. Also avoid the following: Eating large meals, eating close to bedtime, caffeine, carbonation, citrus fruits and juices, tomato products, NSAID medications such as ibuprofen or naproxen, alcohol, tobacco, mints, fatty/greasy foods, spicy foods, chocolate, and anything else you know irritates your stomach or chest. Return to the ER if you have worsening symptoms despite following these instructions. All discharge instructions reviewed with patient and/or family. Voiced understanding. Scripts Pantoprazole Sodium (Protonix) 40 Mg Tablet. 40 MG PO DAILY, #30 TAB Prov: MARILYN STEPHENSON MD 02/18/23 Copy Copies To 1: [facility]/MARILYN DOYLE MD Feb 18, 2023 15:10
[2023-02-18 15:12] LABS: ALKALINE PHOSPHATASE 94 U/L (40-136); CREATININE SERUM 1.05 MG/DL (0.60-1.30); GFR ESTIMATED 80
[2023-02-18 15:13] LABS: BUN/CREATININE RATIO 13
[2023-02-18 15:15] LABS: ALANINE AMINOTRANSFERASE 73 U/L (0-55); MAGNESIUM 2.3 MG/DL (1.6-2.4)
[2023-02-18] MEDS ORDERED: ASPIRIN 81 MG CHEWABLE TABLET PO ONE (15:15)
[2023-02-18] MEDS ORDERED: NITROGLYCERIN 0.4 MG SL TABLETS BTL 25'S SL PRN (15:15)
[2023-02-18 16:37] LABS: FREE T4 (FREE THYROXINE) 0.91 NG/DL (0.70-1.48)
[2023-02-18] MEDS ORDERED: LIDOCAINE 2% VISCOUS 15 ML UDC PO ONE (17:00)
[2023-02-18] MEDS ORDERED: ANTACID SUSPENSION 30 ML UDC PO ONE (17:00)
[2023-02-18] MEDS ORDERED: ONDANSETRON INJECTION 4 MG/2 ML (SDV) IVP ONE (17:00)
[2023-02-18] MEDS ORDERED: PANT40TA2 PO (17:44)
[2023-02-18 17:50] VITALS: BP 120/54
== END 2023-02-18 17:50 | disposition home or self-care (01) ==
LOC: EDUNIT# 14:34 → ER 14:36
DX: R07.9 Chest pain, unspecified (principal); Z20.822 Contact with and (suspected) exposure to COVID-19
CPT/HCPCS: 36415; 71045; 80053; 80178; 83735; 83874; 83880; 84439; 84443; 84484; 85025; 85379; 85610; 85730; 86141; 87636; 93005; 93041